=== PATIENT | male | born 1990 | race Caucasian/White ===

== ENCOUNTER 2024-07-01 20:26 | Emergency (ER) | payer OTHER ==
[~2024-07-01] VITALS: Ht 175.3 cm; Wt 102.1 kg
[2024-07-01 20:50] VITALS: BP_SYST 117; PULSE 88; RESP 18; TEMP 98.7; O2SAT 98
== END 2024-07-01 23:22 | disposition left against medical advice (07) ==
LOC: SED 20:26
DX: R10.9 Unspecified abdominal pain (principal); R51.9 Headache, unspecified; R53.1 Weakness; Z53.21 Procedure and treatment not carried out due to patient leaving prior to being seen by health care provider